=== PATIENT | female | born 1950 | race Caucasian/White ===

== ENCOUNTER → 2016-11-12 | Outpatient (CLI) | payer OTHER ==
[~2016-11-12] MED LIST: BENTYL20 MG PO; COUMADIN PO; COUMADIN2.5 MG PO; COUMADIN3 MG PO; LIPITOR40 MG PO; LOPRESSOR PO; OMEPRAZOLE20 M2 PO; PREMARIN PO; PRILOSEC20 MG PO; STATIN; SYNTHROID0.05 MG PO; TOPROL XL PO; TYLENOL #3 PO; ZOCOR PO; ZOFRAN ODT4 MG SL; ZOLOFT PO
--- NOTE | ~2016-11-12 | MY11 ---
[facility] A Service [facility] RADIOLOGY TEXT RESULTS PATIENT: SILVIA GARCIA LOCATION: [facility] : 46 UNIT #: [id number] AGE: [address]: MONE PEARSON APRN SEX: F ORDER DR: [id number] [facility]. [place], [place] [address] [id number] O MR#: [id number] Acc #: [id number] NAME: SILVIA GARCIA : 1950 SEX: F STUDY DATE/TIME: 11/12/2016 14:31 UNIT: [facility] ROOM: STUDY DESCRIPTION: MY Mammogram Screening Dig [place] Attending Physician: Mone Pearson Referring Physician: Mone Pearson Ordering Physician: Physician Non-Staff Primary Care Physician: Mone Pearson MEDICAL IMAGING REPORT This report is preliminary unless electronic signature is present EXAM Bilateral Digital Screening Mammogram with CAD INDICATION Breast cancer screening. 66-year-old asymptomatic female. No personal or family history of breast cancer. COMPARISON August 01, 2015; January 29, 2014; September 02, 2012, August 30, 2011; August; August 15, 2010; February 20, 2009 and February 15, 2009 FINDINGS There are scattered fibroglandular tissues. No suspicious findings are present. IMPRESSION No mammographic evidence of malignancy. Annual screening mammography and clinical breast exam are recommended. A result letter will be sent to the patient. Patients over the age of 40 are entered into a reminder system with target due date for the next mammogram. BIRADS: 1 Negative Dictated by... Chauncey Kebede M.D. [facility] A Service [facility] RADIOLOGY TEXT RESULTS PATIENT: SILVIA GARCIA LOCATION: [facility] : 46 UNIT #: [id number] AGE: [address]: MONE PEARSON APRN SEX: F ORDER DR: THIS IS AN ELECTRONICALLY VERIFIED REPORT Chauncey Kebede M.D. at 11/13/2016 7:26 AM Kelsey TD: 11/13/2016 05:27 JOB #: [id number] MEDICAL IMAGING REPORT COPY
== END | disposition home or self-care (01) ==
LOC: CWCC 13:06
DX: Z12.31 Encounter for screening mammogram for malignant neoplasm of breast (principal)
CPT/HCPCS: G0202